=== PATIENT | female | born 1955 ===

== ENCOUNTER 2017-11-25 09:25 | Day surgery (SDC) | payer OTHER ==
[~2017-11-25] VITALS: Ht 165.1 cm; Wt 74.3 kg
[~2017-11-25 09:25] MED LIST: ASPI325 PO; Calcium Magnes1 EACH PO; Daily Multiple1 EACH PO; KELP150 MC1 PO; VITAMIN D32000 UNIT PO
== END 2017-11-25 11:12 | disposition home or self-care (01) ==
LOC: ORSCSDS 09:25
PROVIDERS: Surgery
PROC: 0DJD8ZZ Inspection of Lower Intestinal Tract, Via Natural or Artificial Opening Endoscopic (ICD-10-PCS; principal; 2017-11-25 10:30)
DX: Z12.11 Encounter for screening for malignant neoplasm of colon (principal); E78.5 Hyperlipidemia, unspecified; Z87.891 Personal history of nicotine dependence
CPT/HCPCS: J2405; J7120

== ENCOUNTER → 2019-09-11 | Outpatient (CLI) | payer OTHER ==
[2019-09-13 14:06] LABS: HPV 16 Negative (Negative); HPV 18 Negative (Negative); HPV OTHER HR TYPES Negative (Negative)
== END | disposition home or self-care (01) ==
LOC: LAB SHORT 19:03 → LAB 19:03
PROVIDERS: Nurse Practitioner Family
DX: Z01.411 Encounter for gynecological examination (general) (routine) with abnormal findings (principal)
CPT/HCPCS: 87624; G0145